=== PATIENT | female | born 1945 | race Caucasian/White ===

== ENCOUNTER → 2021-05-13 15:44 | Outpatient (BNVA) | payer MEDICARE, OTHER, SELFPAY | PROVIDERS: Family Provider Family Medicine; PCP Family Medicine; Visit Provider Nurse Practitioner Family | DX: I49.9 Cardiac arrhythmia, unspecified (principal) | CPT/HCPCS: 84443 ==

== ENCOUNTER 2021-07-09 12:05 | Outpatient (CLI) | payer MEDICARE, OTHER, SELFPAY ==
[2021-07-09 12:45] VITALS: BP 117/66; PULSE 86; RESP 16; TEMP 36.4; O2SAT 97; BMI 30.9
[2021-07-09 13:55] VITALS: BP 98/53; PULSE 62; RESP 17; TEMP 36.5; O2SAT 94
[2021-07-09 14:15] VITALS: BP 100/59; RESP 78; O2SAT 95
--- NOTE | 2021-07-09 14:39 | PC.NURSE ---
BP reassessed d/t significant change since intial vitals. Patient asymptomatic. No concerns are noted.
[2021-07-09 15:01] VITALS: BP 98/60; PULSE 64; RESP 17; TEMP 36.4
== END 2021-07-09 12:06 | disposition home or self-care (01) ==
LOC: OPS 12:07
PROVIDERS: PCP Family Medicine; Visit Provider Nurse Practitioner Family
DX: U07.1 COVID-19 (principal)
CPT/HCPCS: 96365

== ENCOUNTER → 2021-08-19 11:37 | Outpatient (BNVA) | payer MEDICARE, OTHER, SELFPAY | PROVIDERS: PCP Family Medicine; Referring Provider Nurse Practitioner Family; Visit Provider Internal Medicine Cardiovascular Disease | DX: Z01.818 Encounter for other preprocedural examination (principal); I48.0 Paroxysmal atrial fibrillation; Z20.822 Contact with and (suspected) exposure to COVID-19 | CPT/HCPCS: 87635 ==

== ENCOUNTER 2021-08-25 10:43 | Day surgery (SDC) | payer MEDICARE, OTHER, SELFPAY ==
[2021-08-23 14:20] VITALS: BMI 30.9
[2021-08-25 11:27] VITALS: BP 139/68; PULSE 60; RESP 18; TEMP 36.3; O2SAT 97
[2021-08-25] MEDS: sodium chloride 0.9% 1,000 ML 30 ML IV (11:44)
--- NOTE | 2021-08-25 11:52 | SUR.PREOP ---
Pt to GI lab for FRAN with possible cardio version for A-fib. Pt placed on telemetry and noted to have NSR. Dr. Knox at bedside. Procedure cancelled. Pt to follow up with Dr. Knox in clinic.
--- NOTE | 2021-08-25 12:12 | W.PM.OPSUD ---
Surgery/Procedure H&P Update DATE OF PROCEDURE: August 25, 2021 DATE H&P PERFORMED: 08/25/21 H&P UPDATE INFORMATION: I have reviewed H&P completed within last 30 days, I have examined patient prior to procedure and Changes to prior documentation as noted here (Patient was noted to be in sinus rhythm. Since she is in sinus rhythm no cardioversion required. Patient has converted spontaneously before procedure) CHANGES TO PREVIOUS DOCUMENTATION: Patient was brought in today for FRAN guided electrical cardioversion however she was noted to be in sinus rhythm therefore we canceled the procedure. We will see her back in our clinic. Patient goes in and out of atrial fibrillation at this point with suggest proceeding with antiarrhythmics. I have detailed discussion with the patient regarding all risk benefit and alternative for antiarrhythmics, we therefore agreed upon dronedarone. We will see her back in our clinic over next few days we will plan to put 21 days of event monitor and load her at home and monitor her for any episodes of atrial fibrillation. Further plan will advise as per progress of the patient. PLANNED PROCEDURE: Operation Date: 08/25/21 12:00 Proposed Procedures p FRAN(Not Applicable) - Dorita Knox MD
== END 2021-08-25 12:15 | disposition home or self-care (01) ==
LOC: GILAB 10:44
PROVIDERS: PCP Family Medicine; Visit Provider Internal Medicine Cardiovascular Disease
PROC: (CPT 93312; principal; 2021-08-25 12:00)
DX: I48.91 Unspecified atrial fibrillation (principal); Z53.9 Procedure and treatment not carried out, unspecified reason
CPT/HCPCS: 96360; J7030

== ENCOUNTER → 2022-03-03 15:26 | Outpatient (BNVA) | payer MEDICARE, OTHER, SELFPAY | PROVIDERS: PCP Family Medicine; Visit Provider Internal Medicine Cardiovascular Disease | DX: I48.0 Paroxysmal atrial fibrillation (principal); R06.02 Shortness of breath; I11.0 Hypertensive heart disease with heart failure; I50.32 Chronic diastolic (congestive) heart failure; I47.1 Supraventricular tachycardia; I49.1 Atrial premature depolarization | CPT/HCPCS: 93246; 99214 ==

== ENCOUNTER → 2022-05-12 15:45 | Outpatient (BNVA) | payer MEDICARE, OTHER, SELFPAY | PROVIDERS: PCP Family Medicine; Visit Provider Nurse Practitioner Family | DX: I11.0 Hypertensive heart disease with heart failure (principal); I50.32 Chronic diastolic (congestive) heart failure | CPT/HCPCS: 99214 ==

== ENCOUNTER → 2022-06-14 13:56 | Outpatient (BNVA) | payer MEDICARE, OTHER, SELFPAY | PROVIDERS: PCP Family Medicine; Visit Provider Nurse Practitioner Family | DX: R55 Syncope and collapse (principal); I11.0 Hypertensive heart disease with heart failure; I50.30 Unspecified diastolic (congestive) heart failure; R00.1 Bradycardia, unspecified; I44.0 Atrioventricular block, first degree; I45.10 Unspecified right bundle-branch block | CPT/HCPCS: 36415; 80048; 83880; 85025; 93005; 99214 ==

== ENCOUNTER 2022-06-30 15:58 | Outpatient (CLI) | payer MEDICARE, OTHER, SELFPAY ==
[2022-06-30 16:28] LABS: Basophils % 0.5 %; Eosinophils # 0.1 10^3/uL (0.0-0.8); Eosinophils % 1.2 %; Hematocrit 43.6 % (37.0-47.0); Hemoglobin 14.4 g/dL (11.5-15.3); Lymphocytes # 1.7 10^3/uL (0.8-4.8); Lymphocytes % 21.4 %; Mean Corpuscular Hemoglobin 32.1 pg (28.0-34.0); Mean Corpuscular Volume 97.1 fl (81-99); Mean Platelet Volume 10.2 fL (7.4-10.4); Monocytes # 0.8 10^3/uL (0.2-0.9); Monocytes % 9.4 %; Neutrophils # 5.45 10^3/uL (1.8-7.7); Neutrophils % 67.3 %; Nucleated Red Blood Cells % 0 %; Platelet Count 251 10^3/cmm (130-400); Red Blood Count 4.49 10^6/uL (4.1-5.3); Red Cell Distribution Width 13.2 % (12.1-15.1); White Blood Count 8.1 10^3/uL (4.0-10.0)
[2022-06-30 17:17] LABS: NT Pro B Type Natriuretic Pept 225 pg/mL (0-125)
== END 2022-06-30 15:59 | disposition home or self-care (01) ==
LOC: LAB 16:06
PROVIDERS: PCP Family Medicine; Visit Provider Nurse Practitioner Family
DX: I50.32 Chronic diastolic (congestive) heart failure (principal); R06.02 Shortness of breath; R55 Syncope and collapse
CPT/HCPCS: 36415; 83880; 85025

== ENCOUNTER 2022-07-12 12:49 | Outpatient (CLI) | payer MEDICARE, OTHER, SELFPAY ==
--- NOTE | 2022-07-12 12:45 | USCV_ITS ---
Enedelia Lisa Age: 76 Gender: F : 1945 Exam Date: 07/12/2022 13:18 Ordering Phys: Pat Anderson Technologist: TATE [place] [facility] [place]: Syncope Risk Factors: Previous Vascular Surgery: Right Brachial BP: / Left Brachial BP: / Right Left Velocity (cm/s) Spectral Plaque Velocity (cm/s) Spectral Plaque Syst/Diast Broadening Syst/Diast Broadening 55.00/ 9.10 Prox CCA 56.50 / 13.80 51.80/ 16.60 Mid CCA 61.80 / 15.10 48.10/ 15.00 Distal CCA 57.80 / 13.10 53.40/ 18.70 Prox ICA 40.80 / 14.50 87.80/ 27.20 Mid ICA 82.70 / 35.30 94.80/ 34.20 Distal ICA 111.20/ 26.80 80.20 ECA 66.40 1.72 ICA/CCA 1.80 Vertebral 35.90/ 11.50 cm/s 49.70/ 10.70 cm/s Subclavian 71.20 58.10 CONCLUSIONS Right ICA stenosis <50%. Left ICA stenosis <50%. Normal antegrade Doppler flow noted in the right vertebral artery. Normal antegrade Doppler flow noted in the left vertebral artery. Bobby Winslow MD (Electronically Signed) Final Date: 12 July 2022 16:59 S
== END 2022-07-12 12:50 | disposition home or self-care (01) ==
LOC: RAD 12:52
PROVIDERS: PCP Family Medicine; Visit Provider Nurse Practitioner Family
DX: R55 Syncope and collapse (principal); I65.23 Occlusion and stenosis of bilateral carotid arteries
CPT/HCPCS: 93880

== ENCOUNTER 2022-07-14 14:44 | Outpatient (CLI) | payer MEDICARE, OTHER, SELFPAY ==
--- NOTE | 2022-07-14 14:30 | USCV_ITS ---
Enedelia Lisa Age: 76 Gender: F : 1945 Exam Date: 07/14/2022 15:02 Ordering Phys: Pat Anderson Technologist: Kamini Johnson Exam Location: [facility] [place] Indication: fatigue, [place] BP: 128 / 70 HR: 61 Rhythm: Sinus Technical Quality: Adequate MEASUREMENTS (Male / Female) Normal Values 2D ECHO LV Diastolic Diameter PLAX 5.0 cm 4.2 - 5.9 / 3.9 - 5.3 cm LV Systolic Diameter PLAX 2.1 cm IVS Diastolic Thickness 1.0 cm 0.6 - 1.0 / 0.6 - 0.9 cm IVS Systolic Thickness 1.7 cm LVPW Diastolic Thickness 0.8 cm 0.6 - 1.0 / 0.6 - 0.9 cm LVPW Systolic Thickness 1.8 cm LVOT Diameter 2.0 cm LV Ejection Fraction 2D Teich 87.8 % LV Ejection Fraction MOD 2C 33.3 % LV Ejection Fraction 2C AL 34.4 % LA Width 4.1 cm LA Height 4.6 cm RA Width 2.9 cm RA Height 4.8 cm Aorta at Sinotubular Diameter 2.5 cm IVC Diameter 1.7 cm DOPPLER AV Peak Velocity 150.0 cm/s LVOT Peak Velocity 153.0 cm/s AV Area Cont Eq vti 3.8 cm squared AV Area Cont Eq pk 3.4 cm squared MV Peak Velocity 133.0 cm/s MV Area PHT 3.1 cm squared Mitral E to A Ratio 1.5 MV E' Velocity 61.0 cm/s Mitral E to MV E' Ratio 12.1 Mitral E to LV E' Lateral Ratio 13.3 Mitral E to LV E' Septal Ratio 11.3 TR Peak Velocity 186.0 cm/s TR Peak Gradient 13.8 mmHg Right Atrial Pressure 3.0 mmHg Pulmonary Artery Systolic Pressu 16.8 mmHg RV Acceleration Time 0.1 s RV Ejection Time 0.4 s RV AcT/ET 0.4 FINDINGS Left Ventricle Left ventricle is normal in size. LV systolic function is normal with EF of 50 to 55%. No regional wall motion abnormalities are seen. Right Ventricle RV is normal in size and function Right Atrium Normal in size Left Atrium Normal in size Mitral Valve Structurally normal mitral valve. Mild mitral regurgitation Aortic Valve Thickened aortic valve. Doppler exam of aortic valve not performed Tricuspid Valve Mild tricuspid regurgitation. Pulmonary artery systolic pressure is normal Pulmonic Valve Not well visualized Pericardium Normal Aorta Normal in size IVC IVC appears to be normal CONCLUSIONS Technically limited quality echocardiogram because of poor ultrasonic windows. LV systolic function normal with EF of 50 to 55% Mild mitral regurgitation. Mild tricuspid regurgitation. Compared to prior echocardiogram from 2017, no significant changes are seen Logan Rossi MD (Electronically Signed) Final Date: 21 July 2022 09:51 S
== END 2022-07-14 14:45 | disposition home or self-care (01) ==
LOC: RAD 14:47
PROVIDERS: PCP Family Medicine; Visit Provider Nurse Practitioner Family
DX: I50.30 Unspecified diastolic (congestive) heart failure (principal); R06.00 Dyspnea, unspecified; I08.1 Rheumatic disorders of both mitral and tricuspid valves
CPT/HCPCS: 93306

== ENCOUNTER 2022-08-05 08:45 | Outpatient (CLI) | payer MEDICARE, OTHER, SELFPAY ==
--- NOTE | 2022-08-05 | ECG_ITS ---
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 Interpretive Statements NAME OF STUDY: LEXISCAN SESTAMIBI STRESS TEST INDICATION: [worsening angina, ] Procedure: At the baseline, the blood pressure was 114/79 mmHg with a heart rate of 78 bpm. The electrocardiogram showed normal sinus rhythm, normal axis with normal ST and T's. The Lexiscan was infused over a period of 20 seconds. A total of 0.4 mg of Lexiscan was infused. The stress phase was continued for a total of 5 minutes. Heart rate was at the end of stress phase was 138 bpm and a blood pressure of 143/61 mmHg. The EKG at the peak infusion revealed normal sinus rhythm with no significant ST-T wave changes. Sestamibi was injected 20 seconds after the Lexiscan infusion. Blood pressure at the end of recovery phase was 112/60 mmHg with a heart rate of 77 bpm. Occasional PVCs were seen Conclusion: 1. Normal EKG response to Lexiscan infusion 2. No Lexiscan induced chest pain or cardiac arrhythmia. 3. Normal blood pressure and heart rate response. 4. Sestamibi/sestamibi perfusion scan pending; see separate report. Electronically Signed On 08-13-2022 21:10:07 CDT by Logan Rossi M.D. [email or web address].World Review[employer]/store/OM/[id number]
[2022-08-05 09:36] VITALS: BMI 31.7
--- NOTE | 2022-08-05 09:51 | NMCV_ITS ---
NM latasha perf SPECT r/s* [id number] Enedelia Lisa Age: 76 Gender: F : 1945 Exam Date: 08/05/2022 10:47 Ordering Phys: Pat Anderson Technologist: HOLLI Benavidez Exam Location: [facility] Indications: Chest Pain STRESS TEST Please see separate stress test report in Eph[facility]any for full findings IMAGE PROTOCOL Rest/Stress 1 Exercise Day Radiopharmaceutical Dose (mCi) Administration Site Administered by Rest: Tc-99m 10.9 IV Veronika Yasmine, DRUM ATTENDANT Sestamibi Stress:Tc-99m 33.0 IV Veronika Yasmine, DRUM ATTENDANT Sestamibi Rest: 05-Aug-2022 60 Discovery 630 Stress: 05-Aug-2022 30 Discovery 630 Radiopharmaceutical was injected at 91% maximum heart rate. Images obtained in supine and prone position. SPECT RESULTS Technical Quality: Excellent Raw Data Analysis: Breast attenuation, Adequate Image Corrections: No attenuation or motion correction applied Summed Stress Score: 1 Summed Rest Score: 1 Summed Difference Score: 0 PERFUSION FINDINGS SPECT images demonstrate homogeneous tracer distribution throughout the myocardium. FUNCTIONAL RESULTS (calculated via Gated SPECT) Stress Image LV EF (%): 85 Stress EDV (mL):73 TID: 1.12 Stress ESV (mL):11 FUNCTIONAL FINDINGS: There is normal left ventricular systolic function. IMPRESSIONS 1. Normal myocardial perfusion imaging with no evidence of ischemia. 2. LV systolic function normal. Logan Rossi MD (Electronically Signed) Final Date: 06 August 2022 22:31 S
[2022-08-05 11:46] VITALS: BP 112/60; PULSE 78
== END 2022-08-05 08:46 | disposition home or self-care (01) ==
LOC: CDL 08:47
PROVIDERS: PCP Family Medicine; Visit Provider Nurse Practitioner Family
DX: I20.9 Angina pectoris, unspecified (principal); R07.9 Chest pain, unspecified; R06.02 Shortness of breath
CPT/HCPCS: 78452; 93017; A9500

== ENCOUNTER → 2022-08-23 16:34 | Outpatient (BNVA) | payer MEDICARE, OTHER, SELFPAY | PROVIDERS: PCP Family Medicine; Visit Provider Internal Medicine Cardiovascular Disease | DX: I48.0 Paroxysmal atrial fibrillation (principal); R00.1 Bradycardia, unspecified; R05.3 Chronic cough; R06.02 Shortness of breath; I48.92 Unspecified atrial flutter; I11.0 Hypertensive heart disease with heart failure; I50.32 Chronic diastolic (congestive) heart failure | CPT/HCPCS: 71046; 93242; 99214 ==

== ENCOUNTER → 2023-01-23 15:38 | Outpatient (BNVA) | payer MEDICARE, OTHER, SELFPAY | PROVIDERS: PCP Family Medicine; Visit Provider Nurse Practitioner Family | DX: I48.92 Unspecified atrial flutter (principal); I11.0 Hypertensive heart disease with heart failure; I50.32 Chronic diastolic (congestive) heart failure; Z79.01 Long term (current) use of anticoagulants | CPT/HCPCS: 99214 ==

== ENCOUNTER 2023-04-30 16:34 | Emergency (ER) | payer MEDICARE, OTHER, SELFPAY ==
[2023-04-30] VITALS (8 sets, daily range): BP systolic 99–120; BP diastolic 58–73; PULSE 63–86; RESP 14–29; TEMP 36.5; O2SAT 95–97; BMI 29.2
--- NOTE | 2023-04-30 16:37 | W.ED.SYNCOPE ---
HPI - Syncope General: Chief Complaint: Syncope Stated Complaint: SYNCOPE; DIZZY Time Seen by Provider: 04/30/23 16:37 History of Present Illness: Ms. Lisa is a 77-year-old lady with complex past medical history including atrial flutter with history of ablation approximately 1 and half years ago presenting to the emergency department for lightheadedness and syncopal episode. 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 She had taken it that morning however was instructed that she could try and stop taking it. She felt well the next day however subsequently developed tachycardia and lightheadedness. She restarted the propafenone however has had continued worsening symptoms eluding syncopal episode today. She notes chest tightness with episodes of tachycardia and mild shortness of breath. She does have generalized unwellness. Denies infectious symptoms. No other specific changes in health, exacerbating, or alleviating factors identified. Onset (ago): hour(s) Prodromal symptoms: lightheaded, palpitations and heart racing Associated symptoms: Reports weakness and other Review of Systems General: Reports: 10 or more systems reviewed and unremarkable except in HPI and below PFSH ED PFSH: Medical History Arthritis Chronic migraine Diabetes mellitus Diastolic CHF Endometriosis HTN (hypertension) SVT (supraventricular tachycardia) Surgical History S/P ablation of atrial flutter S/P bilateral oophorectomy S/P cataract surgery S/P cervical disc replacement S/P dilatation and curettage S/P fusion of thoracic spine S/P hip replacement Right S/P rotator cuff repair Left S/P tubal ligation Family History Other CAD (coronary artery disease) Social History Smoking and tobacco status: never smoked Physical Exam Const: COMMON NORMALS: patient oriented x3 and alert GENERAL APPEARANCE: cooperative and well developed HENMT: COMMON NORMALS: normocephalic and atraumatic HEAD & SCALP: normocephalic and atraumatic Eye: COMMON NORMALS: conjunctivae normal CONJUNCTIVA: Yes conjunctivae normal SCLERA: sclerae normal Neck/C-Spine: COMMON NORMALS: supple GENERAL: Yes trachea midline Resp: COMMON NORMALS: clear to auscultation bilaterally EFFORT & INSPECTION: Yes able to speak in complete sentences AUSCULTATION: clear to auscultation bilaterally Cardio: COMMON NORMALS: regular rate RATE: regular rate RHYTHM: abnormal rhythm GI: COMMON NORMALS: Soft to palpation PALPATION: Yes Soft to palpation and No Tenderness to palpation present (GI) Extremity: GENERAL: Yes normal exam except as noted and No edema Neuro: COMMON NORMALS: patient oriented x3, CN's II-XII intact bilaterally, moves all extremities, no focal motor deficits and no sensory deficits noted SENSORIUM/ORIENTATION: Yes alert and No Orientation impaired Psych: COMMON NORMALS: mental status grossly normal and Normal thought process present THOUGHT PROCESS: Normal thought process present Course Vital Signs: Vital signs: Vital Signs Temperature 97.7 F 04/30/23 16:35 Pulse Rate 68 04/30/23 20:23 Respiratory Rate 24 H 04/30/23 19:49 Blood Pressure 114/65 04/30/23 20:23 Pulse Oximetry 96 04/30/23 20:23 Oxygen Delivery Me thod Room Air 04/30/23 16:35 MDM - Syncope Medical Decision Making 77-year-old lady presenting with episodes of syncope with complex recent cardiac medication changes. Exam as above. Mildly ill however nontoxic. No focal deficits. EKG demonstrates atrial fibrillation with controlled ventricular response, no STEMI. Labs notable for hemoconcentration and leukocytosis. Perhaps mild dehydration on metabolic panel. Negative range 2-hour delta troponin. BNP is elevated though patient does not appear grossly volume overloaded. Chest x-ray with no lobar consolidation or pneumothorax. Patient feels improved with IV fluid bolus. I discussed disposition options. Most likely etiology of symptoms is related to medication change. Patient is back on medication and there is no indication for loading dose with this medication. She is on appropriate anticoagulation. Patient prefers follow-up with electrophysiology. The results of ED evaluation were discussed with the patient including prescriptions and/or symptomatic cares (if applicable) including appropriate and responsible use, followup plan, and return precautions. The patient verbalized understanding and felt safe for discharge. Medical Records I reviewed the patient's medical records. Lab Data I reviewed the patient's lab results. 04/30/23 17:10 04/30/23 17:10 Radiology Impressions Chest X-Ray 04/30/23 16:58 IMPRESSION: No acute findings. Metallic pin bilateral humeral head Laboratory Results WBC 14.8 10^3/uL (4.0-10.0) H 04/30/23 17:10 RBC 5.51 10^6/uL (4.1-5.3) H 04/30/23 17:10 Hgb 17.2 g/dL (11.5-15.3) H 04/30/23 17:10 Hct 51.5 % (37.0-47.0) H 04/30/23 17:10 MCV 93.5 fl (81-99) 04/30/23 17:10 MCH 31.2 pg (28.0-34.0) 04/30/23 17:10 MCHC 33.4 g/dL (30.0-36.0) 04/30/23 17:10 RDW 13.2 % (12.1-15.1) 04/30/23 17:10 Plt Count 341 10^3/cmm (130-400) 04/30/23 17:10 MPV 9.9 fL (7.4-10.4) 04/30/23 17:10 Neut % (Auto) 70.8 % 04/30/23 17:10 Lymph % (Auto) 17.9 % 04/30/23 17:10 Coles % (Auto) 9.6 % 04/30/23 17:10 Eos % (Auto) 0.5 % 04/30/23 17:10 Baso % (Auto) 0.5 % 04/30/23 17:10 Neut # (Auto) 10.46 10^3/uL (1.8-7.7) H 04/30/23 17:10 Lymph # (Auto) 2.6 10^3/uL (0.8-4.8) 04/30/23 17:10 Coles # (Auto) 1.4 10^3/uL (0.2-0.9) H 04/30/23 17:10 Eos # (Auto) 0.1 10^3/uL (0.0-0.8) 04/30/23 17:10 Baso # (Auto) 0.1 10^3/uL (0.0-0.1) 04/30/23 17:10 Nucleated RBC % (auto) 0 % 04/30/23 17:10 Nucleated RBCs # 0.0 /100WBC 04/30/23 17:10 Sodium 137 mmol/L (136-145) 04/30/23 17:10 Potassium 4.3 mmol/L (3.5-5.1) 04/30/23 17:10 Chloride 97 mmol/L (98-107) L 04/30/23 17:10 Carbon Dioxide 23 mmol/L (22-29) 04/30/23 17:10 Anion Gap 21.3 (5-19) H 04/30/23 17:10 BUN 18 mg/dL (8-23) 04/30/23 17:10 Creatinine 0.7 mg/dL (0.5-0.9) 04/30/23 17:10 GFR Calculation Not Reportable 04/30/23 17:10 Glucose 98 mg/dL (65-115) 04/30/23 17:10 Calculated Osmolality 286 mOsm/kg (285-295) 04/30/23 17:10 Calcium 9.8 mg/dL (8.5-10.5) 04/30/23 17:10 Magnesium 2.0 mg/dL (1.7-2.3) 04/30/23 17:10 Total Bilirubin 0.7 mg/dL (0.15-1.2) 04/30/23 17:10 AST 30 U/L (0-32) 04/30/23 17:10 ALT 33 U/L (0-33) 04/30/23 17:10 Alkaline Phosphatase 113 U/L (35-105) H 04/30/23 17:10 Troponin T Baseline 31 ng/L (0-10) H 04/30/23 17:10 Troponin T 120 Minute 28.34 ng/L (0-10) H 04/30/23 15:14 Delta Troponin T -2.66 ABS# (0-10) L 04/30/23 15:14 NT-Pro-B Natriuret Pep 2290 pg/mL (0-450) H 04/30/23 17:10 Total Protein 7.2 g/dL (6.6-8.7) 04/30/23 17:10 Albumin 4.2 g/dL (3.5-5.2) 04/30/23 17:10 Globulin 3.0 g/dL (1.3-4.6) 04/30/23 17:10 TSH 2.44 uIU/mL (0.27-4.20) 04/30/23 17:10 Discharge Plan Discharge Patient Disposition: Home Clinical Impression: Dehydration, Atrial flutter, Syncope Condition: Stable Prescriptions: No Action propafenone 150 mg tablet 150 mg PO TID Rx Instructions: space evenly during waking hours atorvastatin [Lipitor] 10 mg tablet 10 mg PO DAILY Qty: 90 4RF magnesium oxide 400 mg magnesium capsule 400 mg PO DAILY coenzyme Q10 [Co Q-10] 10 mg capsule 10 mg PO TID multivitamin Tablet 1 tab PO DAILY latanoprost 0.005 % drops 1 drop ophthalmic (eye) DAILY Curcumin 95 % powder 1 % miscellaneous DAILY ferrous sulfate 325 mg (65 mg iron) tablet 325 mg PO DAILY duloxetine [Cymbalta] 60 mg capsule,delayed release(DR/EC) 60 mg PO DAILY metformin 500 mg tablet 500 mg PO BID ascorbic acid (vitamin C) 500 mg capsule 1 mg PO DAILY cetirizine [Zyrtec] 10 mg tablet 10 mg PO DAILY mupirocin 2 % ointment 1 applic TOPICAL BID PRN (Reason: unknown) alclometasone 0.05 % cream 1 applic TOPICAL BID PRN (Reason: unknown) Balanced B-100 Complex 100 mg tablet extended release 1 tab PO DAILY wrzvyuavnns-Q-Zjrlyiwijuubpqy 500-200 mg tablet 1 tab PO DAILY Healthy Eyes Lutein-Zeaxanthin 60 mg-13.5 mg- 15 mg-2 mg-6 mg capsule 1 cap PO DAILY betamethasone dipropionate 0.05 % ointment 1 applic TOPICAL .PRN triamcinolone acetonide 0.1 % cream 1 applic TOPICAL .PRN clindamycin phosphate 1 % lotion 1 applic TOPICAL DAILY PRN cinnamon bark [Cinnamon] 500 mg capsule 500 mg PO DAILY PRN suzbfca-iaflyholy-ylko 333-133-5 mg tablet 1 tab PO DAILY celecoxib [Celebrex] 200 mg capsule 200 mg PO DAILY metoprolol succinate 50 mg tablet extended release 24 hr 25 mg PO DAILY acetylcystine 3,000 mg PO DAILY mupirocin 2 % ointment 1 applic topical BID PRN furosemide 40 mg tablet 40 mg PO DAILY Qty: 180 3RF Rx Instructions: may take 1 additional tablet daily as needed for fluid retention potassium chloride 20 mEq tablet extended release 20 meq PO DAILY Qty: 90 3RF Eliquis 5 mg tablet 5 mg PO BID Qty: 180 4RF losartan 50 mg tablet 50 mg PO DAILY Qty: 90 1RF diltiazem HCl 120 mg capsule,extended release 24hr 120 mg PO DAILY Qty: 90 4RF Discharge Orders: Discharge ED (Routine); Ordered 04/30/23 Ordered By: Darius Guaman Referrals: Marquis Brizuela MD [Primary Care Provider] - Discharge Diet: Usual diet Discharge Activity: Increase activity as tolerated Patient Instructions: Atrial Flutter (ED), Dehydration (ED), Syncope (ED) Activity Restrictions/Additional Instructions: Thank you for visiting the emergency department. You were seen and evaluated for syncope. The exact cause your symptoms is unclear though likely related to dehydration with abnormal heart rhythm. Please follow-up with your farmworker pullet farm. Please ensure that you are staying hydrated. Please also follow-up with your primary care provider. Resume your typical medication regimen. Return for recurrent symptoms, chest pain, shortness of breath, or anything else that you are concerned about and feel needs emergency department evaluation. Coding Level of Care Code ED Picker/Puller for Geovany Blanco
--- NOTE | 2023-04-30 16:42 | ECG_ITS ---
[facility] Test Date: 2023-04-30 Pat Name: Enedelia Lisa Department: Room: Gender: Female Hospice Manager: : 1945 Requested By: Darius Guaman Order Number: [id number] Isidro MD: Logan Rossi M.D. Measurements Intervals [place] Rate: 75 P: 0 AL: 0 QRS: 19 QRSD: 88 T: 105 QT: 378 QTc: 424 Interpretive Statements ATRIAL FIBRILLATION POSSIBLE RIGHT VENTRICULAR CONDUCTION DELAY [RSR (QR) IN V1/V2] NONSPECIFIC ST & T-WAVE ABNORMALITY Compared to ECG 08/17/2019 19:24:05 Sinus rhythm no longer present T-wave abnormality still present Electronically Signed On 04-30-2023 17:30:25 CDT by Logan Rossi M.D. [email or web address]/[id number] f
--- NOTE | 2023-04-30 16:58 | XRR_ITS ---
PROCEDURE INFORMATION: Exam: XR Chest Exam date and time: 04/30/2023 5:19 PM Age: 77 years old Clinical indication: Pain; Chest pressure; Additional info: Syncope, cp TECHNIQUE: Imaging protocol: Radiologic exam of the chest. Views: 1 view. COMPARISON: CR XR chest 2V* [id number] 08/23/2022 4:36 PM FINDINGS: Lungs: Unremarkable. No consolidation. Pleural spaces: Unremarkable. No pleural effusion. No pneumothorax. Heart/Mediastinum: Unremarkable. No cardiomegaly. Bones/joints: Metallic pin is seen in the bilateral humeral head XR/XR chest 1V portable [id number] IMPRESSION: No acute findings. Metallic pin bilateral humeral head
[2023-04-30 17:18] LABS: Basophils # 0.1 10^3/uL (0.0-0.1); Basophils % 0.5 %; Eosinophils # 0.1 10^3/uL (0.0-0.8); Eosinophils % 0.5 %; Hematocrit 51.5 % (37.0-47.0); Hemoglobin 17.2 g/dL (11.5-15.3); Lymphocytes # 2.6 10^3/uL (0.8-4.8); Lymphocytes % 17.9 %; Mean Corpuscular HGB Conc 33.4 g/dL (30.0-36.0); Mean Corpuscular Hemoglobin 31.2 pg (28.0-34.0); Mean Corpuscular Volume 93.5 fl (81-99); Mean Platelet Volume 9.9 fL (7.4-10.4); Monocytes # 1.4 10^3/uL (0.2-0.9); Monocytes % 9.6 %; Neutrophils # 10.46 10^3/uL (1.8-7.7); Neutrophils % 70.8 %; Nucleated Red Blood Cells % 0 %; Platelet Count 341 10^3/cmm (130-400); Red Blood Count 5.51 10^6/uL (4.1-5.3); Red Cell Distribution Width 13.2 % (12.1-15.1); White Blood Count 14.8 10^3/uL (4.0-10.0)
[2023-04-30 17:53] LABS: Troponin(5th) Baseline 31 ng/L (0-10)
[2023-04-30 18:04] LABS: Alanine Aminotransferase 33 U/L (0-33); Albumin Level 4.2 g/dL (3.5-5.2); Alkaline Phosphatase 113 U/L (35-105); Anion Gap 21.3 (5-19); Aspartate Amino Transferase 30 U/L (0-32); Blood Urea Nitrogen 18 mg/dL (8-23); Calcium 9.8 mg/dL (8.5-10.5); Carbon Dioxide 23 mmol/L (22-29); Chloride 97 mmol/L (98-107); Glucose 98 mg/dL (65-115); NT Pro B Type Natriuretic Pept 2290 pg/mL (0-450); Osmolality Calculated 286 mOsm/kg (285-295); Potassium 4.3 mmol/L (3.5-5.1); Sodium 137 mmol/L (136-145); Thyroid Stimulating Hormone 2.44 uIU/mL (0.27-4.20); Total Bilirubin 0.7 mg/dL (0.15-1.2); Total Protein 7.2 g/dL (6.6-8.7)
[2023-04-30] MEDS: sodium chloride 0.9% 1,000 ML 999 ML IV (18:09)
--- NOTE | 2023-04-30 18:49 | ECG_ITS ---
[facility] Test Date: 2023-04-30 Pat Name: Enedelia Lisa Department: Room: Gender: Female Steersman: : 1945 Requested By: Darius Guaman Order Number: [id number] Isidro MD: Logan Rossi M.D. Measurements Intervals [place] Rate: 77 P: 0 OR: 0 QRS: 28 QRSD: 87 T: 108 QT: 396 QTc: 450 Interpretive Statements ATRIAL FIBRILLATION POSSIBLE RIGHT VENTRICULAR CONDUCTION DELAY [RSR (QR) IN V1/V2] NONSPECIFIC ST & T-WAVE ABNORMALITY Compared to ECG 04/30/2023 16:40:54 No significant changes Electronically Signed On 04-30-2023 19:29:06 CDT by Logan Rossi M.D. [email or web address] [email or web address][facility].[employer]store/OM/[id number]
[2023-04-30 19:37] LABS: Troponin 5 2HR 28.34 ng/L (0-10)
[2023-04-30 19:49] LABS: Troponin 5 2HR Delta -2.66 ABS# (0-10)
== END 2023-04-30 20:24 | disposition home or self-care (01) ==
PROVIDERS: Emergency Provider Emergency Medicine; PCP Family Medicine
DX: R55 Syncope and collapse (principal); I48.92 Unspecified atrial flutter; E86.0 Dehydration; Z79.01 Long term (current) use of anticoagulants; Z79.84 Long term (current) use of oral hypoglycemic drugs; I11.0 Hypertensive heart disease with heart failure; I50.9 Heart failure, unspecified
CPT/HCPCS: 36415; 71045; 80053; 83735; 83880; 84443; 84484; 85025; 93005; 96360; 96361; 99285; J7030

== ENCOUNTER → 2023-08-15 15:45 | Outpatient (BNVA) | payer MEDICARE, OTHER, SELFPAY | PROVIDERS: PCP Family Medicine; Visit Provider Internal Medicine Cardiovascular Disease | DX: I48.0 Paroxysmal atrial fibrillation (principal); Z79.01 Long term (current) use of anticoagulants; I11.0 Hypertensive heart disease with heart failure; I50.32 Chronic diastolic (congestive) heart failure; I48.92 Unspecified atrial flutter; R00.1 Bradycardia, unspecified | CPT/HCPCS: 99214 ==

== ENCOUNTER 2023-08-24 14:36 | Outpatient (CLI) | payer MEDICARE, OTHER, SELFPAY ==
--- NOTE | 2023-08-24 14:30 | USCV_ITS ---
Enedelia Lisa Age: 77 Gender: F : 1945 Exam Date: 08/24/2023 14:51 Ordering Phys: Mitzi Ramirez MD ([email or web address]) Technologist: Eli Ventura Exam Location: [facility] [place] Indication: PRIOR ABLATION FOR A FLUTTER BP: 120 / 60 HR: 61 Rhythm: Sinus Technical Quality: Adequate MEASUREMENTS (Male / Female) Normal Values 2D ECHO LV Diastolic Diameter PLAX 3.3 cm 4.2 - 5.9 / 3.9 - 5.3 cm LV Systolic Diameter PLAX 2.0 cm LV Chamber Size 3.8 cm IVS Diastolic Thickness 1.2 cm 0.6 - 1.0 / 0.6 - 0.9 cm IVS Systolic Thickness 1.2 cm LVPW Diastolic Thickness 1.1 cm 0.6 - 1.0 / 0.6 - 0.9 cm LVPW Systolic Thickness 1.4 cm RV Chamber Size 2.5 cm LVOT Diameter 2.0 cm LV Ejection Fraction 2D Teich 73.1 % LV Ejection Fraction MOD 2C 49.6 % LV Ejection Fraction 2C AL 45.2 % LA Diameter 3.9 cm LA Width 3.3 cm LA Height 4.2 cm RA Width 3.6 cm RA Height 4.5 cm Aorta at Sinotubular Diameter 2.2 cm IVC Diameter 1.5 cm M-MODE Aortic Annulus Diameter 2.6 cm LA Ao Ratio MM 1.8 MV E Point Septal Separation 0.4 cm DOPPLER AV Peak Velocity 176.7 cm/s LVOT Peak Velocity 122.7 cm/s AV Area Cont Eq vti 2.4 cm squared AV Area Cont Eq pk 2.3 cm squared MV Area PHT 3.3 cm squared Mitral E to A Ratio 1.2 MV E' Velocity 66.6 cm/s Mitral E to MV E' Ratio 12.1 Mitral E to LV E' Lateral Ratio 12.9 Mitral E to LV E' Septal Ratio 11.5 TR Peak Velocity 206.1 cm/s TR Peak Gradient 17.0 mmHg TR Mean Velocity 151.3 cm/s TR Mean Gradient 10.0 mmHg TR Velocity Time Integral 60.4 cm TV Peak E Velocity 62.0 cm/s Right Atrial Pressure 3.0 mmHg Pulmonary Artery Systolic Pressu 20.0 mmHg RV Acceleration Time 0.1 s RV Ejection Time 0.4 s RV AcT/ET 0.2 FINDINGS Left Ventricle Normal left ventricular size, systolic function and wall thickness, with no regional wall motion abnormalities. Left ventricular ejection fraction is estimated at 65 %. Normal diastolic function. Right Ventricle Normal right ventricular size and systolic function. Right ventricular systolic pressure 20 mmHg. Right Atrium Normal right atrial size. Left Atrium Mildly increased left atrial size. Mitral Valve Structurally normal mitral valve. No mitral valve stenosis. Mild mitral valve regurgitation. Aortic Valve Structurally normal trileaflet aortic valve. No aortic valve stenosis. No aortic valve regurgitation. Tricuspid Valve Structurally normal tricuspid valve. No tricuspid valve stenosis. Trace tricuspid valve regurgitation. Pulmonic Valve Structurally normal pulmonic valve. No pulmonary valve stenosis. Trace pulmonary valve regurgitation. Pericardium No pericardial effusion. Aorta Normal size aortic root and proximal ascending aorta. IVC Normal IVC dimension with >50% respiratory change of the inferior vena cava. CONCLUSIONS 1. Normal left ventricular size, systolic function and wall thickness, with no regional wall motion abnormalities. Left ventricular ejection fraction is estimated at 65 %. Normal diastolic function. 2. Mild mitral valve regurgitation. 3. Normal pulmonary artery pressure. 4. When compared to previous echo report dated 07/21/2022, left ventricular systolic function has improved. However, previous study was technically difficult. Mitzi Ramirez MD (Electronically Signed) Final Date: 28 August 2023 16:39 S
== END 2023-08-24 14:37 | disposition home or self-care (01) ==
LOC: RAD 14:36
PROVIDERS: PCP Family Medicine; Visit Provider Internal Medicine Cardiovascular Disease
DX: I48.91 Unspecified atrial fibrillation (principal); I48.92 Unspecified atrial flutter; I50.30 Unspecified diastolic (congestive) heart failure; I34.0 Nonrheumatic mitral (valve) insufficiency
CPT/HCPCS: 93306

== ENCOUNTER → 2024-01-17 11:03 | Outpatient (BNVA) | payer MEDICARE, OTHER, SELFPAY | PROVIDERS: PCP Family Medicine; Visit Provider Nurse Practitioner Family | DX: I11.0 Hypertensive heart disease with heart failure (principal); I50.30 Unspecified diastolic (congestive) heart failure; R00.1 Bradycardia, unspecified | CPT/HCPCS: 99214 ==

== ENCOUNTER → 2024-07-15 15:35 | Outpatient (BNVA) | payer MEDICARE, OTHER, SELFPAY | PROVIDERS: PCP Family Medicine; Visit Provider Internal Medicine Cardiovascular Disease | DX: I48.0 Paroxysmal atrial fibrillation (principal); I11.0 Hypertensive heart disease with heart failure; I50.32 Chronic diastolic (congestive) heart failure; R00.1 Bradycardia, unspecified | CPT/HCPCS: 99214 ==

== ENCOUNTER → 2025-02-27 16:12 | Outpatient (BNVA) | payer MEDICARE, OTHER, SELFPAY | PROVIDERS: PCP Family Medicine; Visit Provider Internal Medicine Cardiovascular Disease | DX: R53.83 Other fatigue (principal); I48.0 Paroxysmal atrial fibrillation; Z79.01 Long term (current) use of anticoagulants; I11.0 Hypertensive heart disease with heart failure; I50.30 Unspecified diastolic (congestive) heart failure; I48.92 Unspecified atrial flutter; I49.9 Cardiac arrhythmia, unspecified; G47.30 Sleep apnea, unspecified | CPT/HCPCS: 99214 ==

== ENCOUNTER → 2025-02-27 17:15 | Outpatient (BNVA) | payer MEDICARE, OTHER, SELFPAY | PROVIDERS: PCP Family Medicine; Visit Provider Internal Medicine Cardiovascular Disease | DX: I48.0 Paroxysmal atrial fibrillation (principal); I48.92 Unspecified atrial flutter; I49.9 Cardiac arrhythmia, unspecified; R53.83 Other fatigue; I10 Essential (primary) hypertension | CPT/HCPCS: 36415; 84439; 84443; 84481 ==

== ENCOUNTER 2025-04-08 16:05 | Outpatient (CLI) | payer MEDICARE, OTHER, SELFPAY | END 2025-04-08 16:06 | disposition home or self-care (01) | LOC: SLEEP 16:08 | PROVIDERS: PCP Family Medicine; Referring Provider Internal Medicine Cardiovascular Disease; Visit Provider Internal Medicine Pulmonary Disease | DX: G47.33 Obstructive sleep apnea (adult) (pediatric) (principal); G47.36 Sleep related hypoventilation in conditions classified elsewhere | CPT/HCPCS: G0399 ==

== ENCOUNTER → 2025-04-30 10:05 | Outpatient (BNVA) | payer MEDICARE, OTHER, SELFPAY | PROVIDERS: PCP Family Medicine; Visit Provider Nurse Practitioner Family | DX: I48.91 Unspecified atrial fibrillation (principal); I11.0 Hypertensive heart disease with heart failure; I50.33 Acute on chronic diastolic (congestive) heart failure; R00.1 Bradycardia, unspecified; G47.33 Obstructive sleep apnea (adult) (pediatric); Z79.01 Long term (current) use of anticoagulants | CPT/HCPCS: 99214 ==

== ENCOUNTER 2025-05-15 09:34 | Outpatient (CLI) | payer MEDICARE, OTHER, SELFPAY ==
[2025-05-15 09:58] VITALS: BMI 31.7
--- NOTE | 2025-05-15 10:12 | ECG_ITS ---
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 Interpretive Statements Lung unchanged pre/post procedure; Intraprocedure shortess of breath; Symptoms resoled by discharge PROCEDURE: At the baseline, the EKG revealed normal sinus rhythm with a incomplete right bundle branch block pattern.. The baseline heart was 65 bpm with a blood pressue of 130/55 mm of Hg Lexiscan was infused over a period of 20 seconds. A total of 0.4 milligrams of Lexiscan was infused. The stress phase was continued for a total of 5 minutes. Heart rate at the end of the stress phase was 84 bpm with a blood pressure 123/51 mm of Hg. The EKG at the peak infusion revealed no significant changes. Sestamibi was injected 20 seconds after the Lexiscan infusion. Heart rate at the end of the recovery phase was heterogeneous plaques bpm with a blood pressure of 116/62 mm of Hg. CONCLUSION: 1. No significant EKG changes with the LexiScan infusion 2. No LexiScan induced chest pain or cardiac arrhythmia 3. Normal blood pressure and heart rate response 4. Sestamibi/sestamibi perfusion scan pending; see separate report. Electronically Signed On 05-18-2025 21:34:01 CDT by Ney Wilkins M.D. [email or web address]
--- NOTE | 2025-05-15 10:12 | NMCV_ITS ---
NM latasha perf SPECT r/s* [id number] Enedelia Lisa Age: 79 Gender: F : 1945 Exam Date: 05/15/2025 10:30 Ordering Phys: Pat Anderson Technologist: HOLLI Hernandez Exam Location: [facility] [address] Indications: cp STRESS TEST Please see separate stress test report in [facility] for full findings IMAGE PROTOCOL Rest/Stress 1 Lexiscan Day Radiopharmaceutical Dose (mCi) Administration Site Administered by Rest: Tc-99m 10.2 IV Vicenta Suggs, EAR[employer] CH[employer]IATE TEACHER Sestamibi Stress:Tc-99m 33 IV Vicenta Es, EAR[employer] CHILDHOOD ASSOCIATE TEACHER Sestamibi Rest: 15-May-2025 60 Discovery 630 Stress: 15-May-2025 30 Discovery 630 0.4mg Lexiscan. Images obtained in supine and prone position. SPECT RESULTS Technical Quality: Good Raw Data Analysis: Normal Image Corrections: No attenuation or motion correction applied Summed Stress Score: 2 Summed Rest Score: 0 Summed Difference Score: 2 PERFUSION FINDINGS Myocardial perfusion imaging revealing small area of moderately decreased tracer uptake in the mid inferolateral segment. Complete reversibility was noted in this area. FUNCTIONAL RESULTS (calculated via Gated SPECT) Stress Image LV EF (%): 86 Stress EDV (mL):81 TID: 1.09 Stress ESV (mL):11 FUNCTIONAL FINDINGS: Segmental wall motion analysis revealing no gross wall motion abnormalities IMPRESSIONS 1. Myocardial perfusion imaging revealing a small area reversible defect in the mid inferolateral region suggesting ischemia in the distribution of the left circumflex artery. 2. Normal LV ejection fraction of 86% 3. LV wall motion analysis revealing no gross wall motion abnormalities. 4. Normal LV volume Compared to the study from 08/05/2022 this area of ischemia appears to be new Dr Ney Wilkins MD FAC (Electronically Signed) Final Date: 15 May 2025 16:46 S
[2025-05-15 11:16] VITALS: BP 116/62; PULSE 81
== END 2025-05-15 09:35 | disposition home or self-care (01) ==
LOC: CDL 09:37
PROVIDERS: PCP Family Medicine; Visit Provider Nurse Practitioner Family
DX: R06.02 Shortness of breath (principal); R53.83 Other fatigue; R93.1 Abnormal findings on diagnostic imaging of heart and coronary circulation
CPT/HCPCS: 36415; 78452; 93017; 96374; A9500; J2785

== ENCOUNTER 2025-05-27 05:14 | Outpatient (CLI) | payer MEDICARE, OTHER, SELFPAY ==
[2025-05-27 05:00] VITALS: BP 131/72; PULSE 94; RESP 18; TEMP 36.9; O2SAT 95; BMI 32.1
[2025-05-27 05:49] LABS: Hematocrit 41.4 % (36-47); Hemoglobin 13.70 g/dL (11.27-16.99); Mean Corpuscular HGB Conc 33.1 g/dL (30-55); Mean Corpuscular Hemoglobin 30.9 pg (27-33); Mean Corpuscular Volume 93.5 fl (85-98); Nucleated Red Blood Cells % 0 %; Platelet Count 280 10^3/cmm (157-399); Red Blood Count 4.43 10^6/uL (3.85-5.65); White Blood Count 10.78 10^3/uL (3.29-11.43)
[2025-05-27 05:58] LABS: Anion Gap 16.2 (5-19); Blood Urea Nitrogen 18 mg/dL (8-23); Calcium 9.7 mg/dL (8.5-10.5); Carbon Dioxide 26 mmol/L (22-29); Chloride 101 mmol/L (98-107); Creatinine Clr Calc Pharmacy 62.0555; Glucose 114 mg/dL (65-115); Osmolality Calculated 291 mOsm/kg (285-295); Potassium 4.2 mmol/L (3.5-5.1); Sodium 139 mmol/L (136-145)
--- NOTE | 2025-05-27 07:17 | SUR.PREOP ---
FLAVIO GALAVIZ MD arrived and discussed procedure/options with the patient and family. Procedure cancelled at this time. Opted to treat medically and follow up as scheduled with Dr Knox in July. Patient discharged to home in stable condition.
--- NOTE | 2025-05-27 07:21 | P.PN_ITS ---
Subjective 2 Subjective: Today I saw patient as a preop, patient was referred to me for left heart cath. Patient denies chest pain, out of usual shortness of breath her only symptoms is fatigue. Patient underwent stress test which shows small area of defect in the mid inferolateral wall suggestive of ischemia. There was no significant EKG changes on the Lexiscan MIBI. Since patient has a small area of ischemia which could be an artifact and because of the fact it is less than 10% I do not think given her history and stress test left heart cath is indicated at this point. Patient has been recently diagnosed with sleep apnea, I would recommend use CPAP to look for alternate causes for fatigue. We will follow-up on her in our clinic. I have detailed discussion with patient and her by bedside I have explained them in detail regarding my impression, both are in agreement. I would cancel angiogram today. Patient will be following up with Dr. Brizuela who is their primary physician. Stress test result IMPRESSIONS 1. Myocardial perfusion imaging revealing a small area reversible defect in the mid inferolateral region suggesting ischemia in the distribution of the left circumflex artery. 2. Normal LV ejection fraction of 86% 3. LV wall motion analysis revealing no gross wall motion abnormalities. 4. Normal LV volume Compared to the study from 08/05/2022 this area of ischemia appears to be new Vitals/I&O/Wt Last Vital Signs Temp 98.4 F 05/27/25 05:00 Pulse 94 05/27/25 05:00 Resp 18 05/27/25 05:00 BP 131/72 05/27/25 05:00 Pulse Ox 95 05/27/25 05:00 O2 Del Method Room Air 05/27/25 05:00 Weight last 48 hrs Weight 187 lb Data 05/27/25 05:30 05/27/25 05:30 A&P PDMP PDMP Reviewed: Not Reviewed Attestations 2 Medical Necessity Statement*: Patient does not need to stay in the hospital Coding Level of Care Code Acute Code for Chg Fwd
== END 2025-05-27 05:15 | disposition home or self-care (01) ==
LOC: CCL 05:15
PROVIDERS: PCP Family Medicine; Visit Provider Internal Medicine Cardiovascular Disease
DX: Z53.8 Procedure and treatment not carried out for other reasons (principal); R94.39 Abnormal result of other cardiovascular function study
CPT/HCPCS: 36415; 80048; 85025; J1644; J2250; J3010; J3490; J7030; J9999; Q0163

== ENCOUNTER 2025-08-06 14:53 | Outpatient (CLI) | payer MEDICARE, OTHER, SELFPAY ==
--- NOTE | 2025-08-06 15:07 | XR_ITS ---
WS: [id number] DEXA (DUAL ENERGY X-RAY ABSORPTIOMETRY) Bone mineral density was performed using a [employer] machine. HISTORY: ASYMPTOMATIC MENOPAUSAL STATE COMPARISON: 10/08/2014 Left forearm BMD: 0.664 g/cm2. T score: -2.4 Z score: 0.1 Total hip BMD: Left: 0.896 (g/cm2). T score: -0.9 (no units) Z score: 0.4 (no units) 10 year probability of a major osteoporotic fracture is 10.3%. Compared to the prior study from 10/08/2014. LEFT forearm bone mineral density has decreased by 20.9%. LEFT hip bone mineral density has decreased by 8.6%. XR/XR DEXA axial skeleton* [id number] IMPRESSION: OSTEOPENIA based upon the WHO classification for females. Significant decrease in bone mineral density in the LEFT forearm and LEFT hip s deborah the prior study.
== END 2025-08-06 14:54 | disposition home or self-care (01) ==
LOC: RAD 14:54
PROVIDERS: PCP Family Medicine; Visit Provider Family Medicine
DX: Z13.820 Encounter for screening for osteoporosis (principal); Z78.0 Asymptomatic menopausal state; M85.88 Other specified disorders of bone density and structure, other site
CPT/HCPCS: 77080

== ENCOUNTER 2025-08-11 15:05 | Outpatient (CLI) | payer MEDICARE, OTHER, SELFPAY ==
--- NOTE | 2025-08-11 15:00 | USCV_ITS ---
Enedelia Lisa Age: 79 Gender: F : 1945 Exam Date: 08/11/2025 15:28 Ordering Phys: Pat Anderson Technologist: TATE [place] [facility] [place] Indication: New onset afib BP: 144 / 78 HR: 61 Rhythm: Sinus Technical Quality: Adequate MEASUREMENTS (Male / Female) Normal Values 2D ECHO LV Diastolic Diameter PLAX 5.5 cm 4.2 - 5.9 / 3.9 - 5.3 cm IVS Diastolic Thickness 1.1 cm 0.6 - 1.0 / 0.6 - 0.9 cm IVS Systolic Thickness 1.5 cm LVPW Diastolic Thickness 1.4 cm 0.6 - 1.0 / 0.6 - 0.9 cm LVPW Systolic Thickness 1.6 cm LVOT Diameter 2.0 cm LV Ejection Fraction 2D Teich 58.3 % LV Ejection Fraction MOD 4C 76.4 % LV Ejection Fraction MOD 2C 72.1 % LV Ejection Fraction 2C AL 72.0 % LA Diameter 3.9 cm RA Systolic Volume 4C AL 52.4 ml RA Systolic Volume 4C MOD 51.4 ml Aorta at Sinotubular Diameter 2.2 cm IVC Diameter 1.9 cm M-MODE LA Ao Ratio MM 2.1 AV Cusp Separation MM 1.5 cm DOPPLER AV Peak Velocity 203.0 cm/s LVOT Peak Velocity 127.0 cm/s AV Area Cont Eq vti 1.9 cm squared AV Area Cont Eq pk 1.9 cm squared MV Peak Velocity 145.0 cm/s MV Area PHT 3.2 cm squared Mitral E to A Ratio 1.2 TR Peak Velocity 117.0 cm/s TR Peak Gradient 5.5 mmHg TV Peak E Velocity 82.0 cm/s PV Peak Velocity 176.0 cm/s FINDINGS Left Ventricle Normal left ventricular size and systolic function, EF 72%.. Mild left ventricular hypertrophy. No regional wall motion abnormalities. Grade III/IV diastolic dysfunction (restrictive filling pattern), severely elevated filling pressures. Right Ventricle Normal right ventricular size and systolic function. Right Atrium Mildly increased right atrial size. Left Atrium Moderately increased left atrial size. IA Septum Normal appearance of the interatrial septum. Mitral Valve Mild-moderate mitral valve regurgitation. Aortic Valve Aortic valve sclerosis. Tricuspid Valve No gross abnormalities noted Pulmonic Valve Pulmonic valve not well visualized. Pericardium No pericardial effusion. Aorta Normal aortic annulus size. IVC Inferior vena cava not visualized. CONCLUSIONS Normal left ventricular size and systolic function, EF 72%.. Mild left ventricular hypertrophy. No regional wall motion abnormalities. Grade III/IV diastolic dysfunction (restrictive filling pattern), severely elevated filling pressures. Moderately increased left atrial size. Mildly increased right atrial size. Mild-moderate mitral valve regurgitation. Aortic valve sclerosis. There is no pericardial effusion. There are no intracardiac masses. Compared to the study from 08/24/2023, there may not be a significant change. Dr Ney Wilkins MD FACC (Electronically Signed) Final Date: 12 August 2025 14:04 S
== END 2025-08-11 15:06 | disposition home or self-care (01) ==
LOC: RAD 15:05
PROVIDERS: PCP Family Medicine; Visit Provider Nurse Practitioner Family
DX: I50.32 Chronic diastolic (congestive) heart failure (principal); R06.02 Shortness of breath; I10 Essential (primary) hypertension; I51.7 Cardiomegaly; I34.0 Nonrheumatic mitral (valve) insufficiency; I35.0 Nonrheumatic aortic (valve) stenosis
CPT/HCPCS: 93306

== ENCOUNTER → 2025-08-27 12:51 | Outpatient (BNVA) | payer MEDICARE, OTHER, SELFPAY | PROVIDERS: PCP Family Medicine; Visit Provider Internal Medicine Cardiovascular Disease | DX: I48.91 Unspecified atrial fibrillation (principal); R00.1 Bradycardia, unspecified; I11.0 Hypertensive heart disease with heart failure; I50.33 Acute on chronic diastolic (congestive) heart failure; I99.8 Other disorder of circulatory system; Z99.89 Dependence on other enabling machines and devices; G47.30 Sleep apnea, unspecified; Z79.01 Long term (current) use of anticoagulants; I35.8 Other nonrheumatic aortic valve disorders | CPT/HCPCS: 99214 ==